=== PATIENT | male | born 2000 | race Caucasian/White ===

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

== ENCOUNTER 2021-02-23 04:23 | Emergency (ER) | payer OTHER ==
[~2021-02-23 04:23] MED LIST changes: +OMEPRAZOLE MAGN20 MG PO
== END 2021-02-23 04:55 | disposition home or self-care (01) ==
LOC: ED 04:23
DX: R07.81 Pleurodynia (principal)

== ENCOUNTER → 2021-04-01 | Outpatient (CLI) | payer OTHER ==
[2021-04-01 12:28] LABS: HEMATOCRIT 45.5 % (42.0-52.0); MEAN CELL VOLUME 92.3 fl (80.0-94.0); MEAN CORPUSCULAR HGB CONC 33.6 g/dl (33.0-37.0); MEAN PLATELET VOLUME 9.8 fl (9.6-12.3); RED BLOOD COUNT 4.93 10*6/uL (4.50-5.90); RED CELL DISTRI WIDTH 12.6 % (0-14.5); WHITE BLOOD COUNT 5.3 10*3/uL (4.8-10.8)
[2021-04-01 13:01] LABS: ALBUMIN 4.3 gm/dl (3.1-4.5); BUN 12 mg/dl (7-24); CHLORIDE 107 mmol/L (98-107); CHOLESTEROL 159 mg/dL (<200); CREATININE 0.85 mg/dL (0.70-1.30); POTASSIUM 3.9 mmol/L (3.5-5.1); SGOT/AST 14 IU/L (3-35); SGPT/ALT 17 U/L (12-78); SODIUM 139 mmol/L (136-145); TOTAL PROTEIN 7.5 gm/dL (6.4-8.2); TRIGLYCERIDES 46 mg/dl (<150)
[2021-04-01 13:08] LABS: ALKALINE PHOSPHATASE 60 U/L (45-117); FREE T4 0.92 ng/dl (0.76-1.46); LDL CHOLESTEROL 94 mg/dL (9-159)
== END | disposition home or self-care (01) ==
LOC: LAB 11:33
PROVIDERS: ATTEND Family Medicine
DX: R53.83 Other fatigue (principal); R07.9 Chest pain, unspecified; R06.02 Shortness of breath

== ENCOUNTER 2021-10-21 12:36 | Emergency (ER) | payer OTHER | END 2021-10-21 18:42 | disposition left against medical advice (07) | LOC: ED 12:36 | DX: R07.81 Pleurodynia (principal); Z53.21 Procedure and treatment not carried out due to patient leaving prior to being seen by health care provider ==

== ENCOUNTER → 2021-11-02 | Outpatient (CLI) | payer OTHER | END | disposition home or self-care (01) | LOC: RAD 09:12 | PROVIDERS: ATTEND Nurse Practitioner Family | DX: R11.0 Nausea (principal); R63.4 Abnormal weight loss; M94.0 Chondrocostal junction syndrome [Tietze]; F12.10 Cannabis abuse, uncomplicated ==

== ENCOUNTER 2023-01-08 14:41 | Emergency (ER) | payer OTHER ==
[~2023-01-08] VITALS: Ht 167.6 cm; Wt 62.6 kg
== END 2023-01-08 16:44 | disposition home or self-care (01) ==
LOC: ED 14:41
DX: S93.401A Sprain of unspecified ligament of right ankle, initial encounter (principal); Z90.89 Acquired absence of other organs; X58.XXXA Exposure to other specified factors, initial encounter; Y93.44 Activity, trampolining; Y92.89 Other specified places as the place of occurrence of the external cause; Y99.8 Other external cause status

== ENCOUNTER 2023-10-29 22:29 | Emergency (ER) | payer OTHER ==
[~2023-10-29] VITALS: Ht 167.6 cm; Wt 61.2 kg
[2023-10-29] MEDS ORDERED: AMOX-CLAV 875-1 EACH PO (23:04)
== END 2023-10-29 23:34 | disposition home or self-care (01) ==
LOC: ED 22:29
DX: J02.9 Acute pharyngitis, unspecified (principal); R50.9 Fever, unspecified; R51.9 Headache, unspecified